=== PATIENT | female | born 1960 | race Caucasian/White ===

== ENCOUNTER → 2019-06-03 | Outpatient (CLI) | payer MEDICARE, OTHER ==
[~2019-06-03] MED LIST: CALCIUM; CHOL10002 PO; CIPRO500 MG PO; DEXL60CA3 PO; ERGO400 PO; ESOM20 PO; FISH1000 PO; GLUC500 PO; HYDMOR2 PO; LEVSOD125 PO; LEVSOD150 PO; LOSA50 PO; METHADONE; MORP30 PO; MORP30ER PO; MORP60ER PO; MS CONTIN PO; PRILOSEC; PROM25 PO; PYRI100 PO; RISP.25 PO; TRIHYD253B PO; VAGIFEM VAG; VIT C PO; VIVELLE-DOT; Vivelle-Dot1 EAC3 TD
[2019-06-05 15:07] LABS: HPV 16 Negative (Negative); HPV 18 Negative (Negative); HPV OTHER HR TYPES Negative (Negative)
== END | disposition home or self-care (01) ==
LOC: LAB SHORT 09:00 → LAB 09:00
PROVIDERS: Obstetrics & Gynecology Gynecology
DX: R10.2 Pelvic and perineal pain (principal); Z91.89 Other specified personal risk factors, not elsewhere classified
CPT/HCPCS: 87070; 87205; 87624; G0123

== ENCOUNTER → 2023-06-14 | Outpatient (CLI) | payer MEDICARE, OTHER ==
[~2023-06-14] MED LIST changes: +TRAZ150T57 PO; +VITAMIN D32000 UNI3 PO
[2023-06-15 08:15] LABS: Candida species (DNA Probe) Negative (NEGATIVE); G. vaginalis (DNA Probe) Negative (NEGATIVE); T. vaginalis (DNA Probe) Negative (NEGATIVE)
== END | disposition home or self-care (01) ==
LOC: LAB SHORT 10:00 → LAB 10:00
PROVIDERS: Obstetrics & Gynecology
DX: N76.0 Acute vaginitis (principal)
CPT/HCPCS: 87480; 87510; 87660

== ENCOUNTER 2024-06-17 08:39 | Day surgery (SDC) | payer MEDICARE, OTHER ==
[~2024-06-17] VITALS: Ht 167 cm; Wt 54.7 kg
[2024-06-17] VITALS (11 sets, daily range): BP systolic 88–170; BP diastolic 58–93
[~2024-06-17 08:39] MED LIST changes: +CeFAZolin Sodium 2,000 MG in NS 100 ML IV SCH; +Lactated Ringer's 1,000 ML IV SCH; -TRAZ150T57 PO; +TRAZ50 PO
[2024-06-17] MEDS ORDERED: OMEP20ER PO (09:49)
[2024-06-17] MEDS ORDERED: Ondansetron Odt8 MG MM (09:50)
[2024-06-17] MEDS ORDERED: DEXA4 PO (09:51)
[2024-06-17] MEDS ORDERED: Lidocaine HCl 1% 30 ML SDV ONE (09:51)
[2024-06-17] MEDS ORDERED: Bupivacaine 0.5% HCl 5 MG/ML 30MLVIAL ONE (09:52)
[2024-06-17] MEDS ORDERED: ZYPREXA2.5 MG PO (09:52)
[2024-06-17] MEDS ORDERED: ALBU90OI6 INH (10:01)
[2024-06-17] MEDS ORDERED: BUPROPION XL150 M1 PO (10:03)
[2024-06-17] MEDS ORDERED: propofoL 20 ML IV ONE (10:23)
[2024-06-17] MEDS ORDERED: FentaNYL Citrate 50 MCG/ML 2 ML Injection ONE ×2 (10:23→11:39)
[2024-06-17] MEDS ORDERED: Lidocaine HCl 2% 20 ML MDV ONE (10:24)
[2024-06-17] MEDS ORDERED: Dexamethasone Sod Phos 10 MG/ML 1ML VIAL ONE (10:33)
[2024-06-17] MEDS ORDERED: Ondansetron HCl 2 MG / ML 2ML Vial ONE (10:52)
[2024-06-17] MEDS ORDERED: HYDROcodone 5-APAP 325 TAB PO PRN (11:20)
--- NOTE | 2024-06-17 12:01 | NUR ---
PT TO DAY SURGERY STEP DOWN FROM PACU; BEDSIDE REPORT RECEIVED. PT IS AWAKE, ALERT AND ORIENTED; ABLE TO MOVE SELF IN BED. PT HAS STERI STRIP ON RIGHT LOWER NECK THAT IS C/D/I AND GUAZE COVERED IN TEGADERM ON UPPER RIGHT CHEST THAT IS C/D/I. PT REQUESTING JUICE.
--- NOTE | 2024-06-17 12:11 | NUR ---
PT TOLERATING PO FLUIDS
--- NOTE | 2024-06-17 12:20 | NUR ---
TOLERATING CRACKERS WELL
--- NOTE | 2024-06-17 12:31 | NUR ---
PT INCISION SITES REMAIN C/D/I. ICE PACK MADE FOR PT. Discharge instructions reviewed with patient. Patient verbalizes understanding. Copy given to patient to take home. Patient States Post-Procedure ride home has been arranged.
--- NOTE | 2024-06-17 12:59 | NUR ---
History, Chart, Medications and Allergies reviewed before start of procedure. Patient States Post-Procedure ride home has been arranged. Discharged via wheelchair to private car for ride home.
== END 2024-06-17 12:55 | disposition home or self-care (01) ==
LOC: ORSCMMR 08:39 → ORD 10:15 → ORSCMMR 10:15
PROVIDERS: Surgery
PROC: 0JH63WZ Insertion of Totally Implantable Vascular Access Device into Chest Subcutaneous Tissue and Fascia, Percutaneous Approach (ICD-10-PCS; principal; 2024-06-17 10:15)
PROC: B549ZZA Ultrasonography of Inferior Vena Cava, Guidance (ICD-10-PCS; principal; 2024-06-17 10:15)
PROC: 06H033Z Insertion of Infusion Device into Inferior Vena Cava, Percutaneous Approach (ICD-10-PCS; principal; 2024-06-17 10:15)
DX: C50.912 Malignant neoplasm of unspecified site of left female breast (principal); I10 Essential (primary) hypertension; E78.5 Hyperlipidemia, unspecified; Z87.891 Personal history of nicotine dependence; K21.9 Gastro-esophageal reflux disease without esophagitis; E03.9 Hypothyroidism, unspecified; Z99.81 Dependence on supplemental oxygen; Z79.899 Other long term (current) drug therapy
CPT/HCPCS: 77001; A9270; C1788; J0690; J1100; J1642; J2405; J2704; J3010; J7120

== ENCOUNTER 2024-10-27 07:34 | Day surgery (SDC) | payer MEDICARE, OTHER ==
[~2024-10-27 07:34] MED LIST changes: +ALBU90OI6 INH; +BUPROPION XL150 M1 PO; -CeFAZolin Sodium 2,000 MG in NS 100 ML IV SCH; +DEXA4 PO; -Lactated Ringer's 1,000 ML IV SCH; +OMEP20ER PO; +Ondansetron Odt8 MG MM; +ZYPREXA2.5 MG PO
[2024-11-04] MEDS ORDERED: CULTURELLE ADV1 EACH PO (12:42)
[2024-11-04] MEDS ORDERED: FISH OIL 1,0001 EA10 PO (12:44)
== END 2024-10-27 23:00 | disposition home or self-care (01) ==
LOC: MOI US 07:34
DX: C50.212 Malignant neoplasm of upper-inner quadrant of left female breast (principal)
CPT/HCPCS: 19285; 77065; A4648